=== PATIENT | male | born 1965 | race Caucasian/White ===

== ENCOUNTER 2021-01-27 04:50 | Day surgery (SDC) | payer OTHER ==
[2021-01-24 10:09] VITALS: BMI 27.3
[2021-01-27 10:05] VITALS: BP 110/71; PULSE 62; TEMP 98
== END 2021-01-27 10:20 | disposition home or self-care (01) ==
LOC: JASU-ENDO 04:50
PROVIDERS: ATTEND Internal Medicine Gastroenterology
PROC: 0DBK8ZX Excision of Ascending Colon, Via Natural or Artificial Opening Endoscopic, Diagnostic (ICD-10-PCS; principal; 2021-01-27 09:00)
DX: Z12.11 Encounter for screening for malignant neoplasm of colon (principal); Z86.010 Personal history of colon polyps; K63.5 Polyp of colon; K57.30 Diverticulosis of large intestine without perforation or abscess without bleeding
CPT/HCPCS: 88305-TC